=== PATIENT | male | born 1955 | race Caucasian/White ===

== ENCOUNTER → 2017-01-17 | Outpatient (CLI) | payer BC ==
[~2017-01-17] MED LIST: Gadobutrol 10 mMOL/10 ML SDV IVPUSH STA
--- NOTE | 2017-01-19 16:18 | MR ---
MEXAM DATE: 01/17/17 PATIENT'S AGE: 61 Patient: SENG RAZA Facility: [place], [place] Site . Site : 1955 Study: MRI Spine Cervical [id number]/13/2017 1:18:44 PM Ordering Physician: Erick Sweeney Final Report: Indication: 61-year-old male. Neck pain with left shoulder and upper arm radiation. Technique: T1-T2 STIR and fat suppressed post contrast T1 weighted sagittal images with multilevel T2 and fat-suppressed post-contrast T1 axial acquisitions. 8 mL Gadavist. Findings: Prevertebral tissues are normal. Minor cervical kyphosis with the apex at C6-7. Cerebellar tonsils are normally situated. There is no pathologic signal within the spinal cord. C2-3: Normal. C3-4: Minimal uncinate spurring. No significant central or foraminal narrowing. C4-5: Disc bulge, minor marginal spurring, minor retrolisthesis and small central protrusion that indents the spinal cord. Dorsal subarachnoid space is intact. Mild right foraminal narrowing by uncinate spurring. C5-6: Moderate right foraminal narrowing by uncinate spurring. Mild spondylosis/ annular bulge. Central canal and left neural foramen are adequately patent. C6-7: Disc bulge and spurring. Moderate right and mild left foraminal narrowing by uncinate spurring. Central canal is adequately patent. C7-T1 and T1-2: Normal. T2-3: Mild right uncinate spurring without significant central or foraminal narrowing. T3-4: Mild foraminal narrowing. Central canal is adequately patent. Impression: 1. No pathologic intraspinal enhancement. 2. Multilevel spondylosis is most advanced at C6-7. 3. Small central protrusion at C4-5 indents the ventral margin spinal cord without impingement. 4. Mild and/or moderate multilevel foraminal stenosis. Dictated by Kristian Mares MD @ Jan 17 2017 2:54PM (Electronic Signature) Report Signed by Proxy and Original Signed Document filed in the Medical Record. [facility]
== END ==
LOC: MW.MRI 10:07
PROVIDERS: ATTEND Internal Medicine
DX: M54.2 Cervicalgia (principal); M47.812 Spondylosis without myelopathy or radiculopathy, cervical region
CPT/HCPCS: 72142; A9585